=== PATIENT | male | born 1965 | race Caucasian/White ===

== ENCOUNTER 2023-02-11 19:24 | Emergency (ER) | payer MEDICAID ==
[~2023-02-11] VITALS: Ht 165.1 cm; Wt 91.2 kg
[2023-02-11 19:40] VITALS: BP 127/77; PULSE 92; RESP 16; TEMP 97.9; O2SAT 96
[2023-02-11] MEDS ORDERED: KETOROLAC 30 MG/ML VIAL IM ONE (21:35)
[2023-02-11 22:17] LABS: FLU A ANTIGEN negative (NEGATIVE); FLU B ANTIGEN NEGATIVE (NEGATIVE)
[2023-02-11] MEDS ORDERED: CYCL-711 PO (22:39)
[2023-02-11] MEDS ORDERED: PROM118S5 PO (22:39)
[2023-02-11] MEDS ORDERED: LID5T TP (22:39)
[2023-02-11] MEDS ORDERED: IBUP-2213 PO (22:39)
[2023-02-11 22:50] VITALS: BP 147/92; PULSE 82; RESP 16; TEMP 97.9; O2SAT 97
== END 2023-02-11 22:52 | disposition home or self-care (01) ==
LOC: MED 19:24
DX: J06.9 Acute upper respiratory infection, unspecified (principal); Z20.822 Contact with and (suspected) exposure to COVID-19; M54.30 Sciatica, unspecified side; Z79.899 Other long term (current) drug therapy
CPT/HCPCS: 71045; 87426; 87804; 96372; 99284; J1885

== ENCOUNTER 2023-05-24 12:03 | Emergency (ER) | payer MEDICAID ==
[~2023-05-24] VITALS: Ht 175.3 cm; Wt 83.9 kg
[~2023-05-24 12:03] MED LIST: CYCL-711 PO; IBUP-2213 PO; LID5T TP; PROM118S5 PO
[2023-05-24 12:11] VITALS: BP 118/82; PULSE 110; RESP 20; TEMP 98.1; O2SAT 99
[2023-05-24] MEDS: ONDANSETRON 4 MG/2 ML VIAL IVP ONE (13:15)
[2023-05-24] MEDS: FAMOTIDINE 20 MG/2 ML VIAL IVP ONE (13:16)
[2023-05-24] MEDS: NACL 0.9% 1,000 ML IV SCH (13:20)
[2023-05-24 14:03] LABS: BASOPHILS % (AUTO) 0.1 % (0.0-2.0); EOSINOPHILS % (AUTO) 0.2 % (0.0-4.0); HEMATOCRIT 42.5 % (36-52); HEMOGLOBIN 14.8 g/dL (12.0-18.0); LYMPHOCYTES # (AUTO) 1.3 K/uL (2.0-11.5); MEAN CORPUSCULAR HEMOGLOBIN 33 pg (27-31); MEAN CORPUSCULAR HGB CONC 35 g/dL (33-37); MEAN CORPUSCULAR VOLUME 94.3 fL (80-94); MONOCYTES # (AUTO) 0.7 K/uL (0.8-1.0); MONOCYTES % (AUTO) 6.5 % (1.7-9.3); NEUTROPHILS % (AUTO) 80.2 % (42.2-75.2); RED BLOOD CELL COUNT(AUTO) 4.51 MIL/uL (4.20-6.10); RED CELL DISTRIBUTION WIDTH 12.7 % (11.6-13.7)
[2023-05-24 14:06] LABS: ANION GAP 12.2 (8-16); CALCIUM 8.4 mg/dL (8.5-10.1); CARBON DIOXIDE 24.7 mmol/L (21-32); CREATININE 0.8 mg/dL (0.6-1.3); POTASSIUM 3.9 mmol/L (3.5-5.1)
[2023-05-24 14:12] LABS: ALANINE AMINOTRANSFERASE 26 U/L (12-78); ALBUMIN 3.3 g/dL (3.4-5.0); ALKALINE PHOSPHATASE 79 U/L (50-136); ASPARTATE AMINOTRANSFERASE 33 U/L (15-37); BILIRUBIN,DIRECT 0.3 mg/dL (0.0-0.3); LIPASE 70 U/L (16-77); TOTAL BILIRUBIN 0.9 mg/dL (0.0-1.0); TOTAL PROTEIN, SERUM 8.6 g/dL (6.4-8.2)
[2023-05-24 14:37] LABS: PLATELET COUNT (AUTO) 214 K/uL (140-450)
[2023-05-24] MEDS ORDERED: ACET-10509 PO (15:00)
[2023-05-24] MEDS ORDERED: BLOO1STR62 TOP (15:00)
[2023-05-24] MEDS ORDERED: METF-346 PO (15:00)
[2023-05-24] MEDS ORDERED: ONDA-188 PO (15:00)
[2023-05-24] MEDS: ACETAMINOPHEN 325 MG TAB PO ONE (15:22)
[2023-05-24 15:29] LABS: APPEARANCE,URINE CLEAR (CLEAR); BILIRUBIN,URINE NEGATIVE (NEGATIVE); BLOOD, URINE NEGATIVE (NEGATIVE); COLOR,URINE YELLOW (YELLOW); LEUKOCYTE ESTERASE ,URINE NEGATIVE (NEGATIVE); NITRITE, URINE NEGATIVE (NEGATIVE); PROTEIN,URINE NEGATIVE (NEGATIVE); UGLUCOSE 1+ (NEGATIVE)
[2023-05-24 16:06] VITALS: BP 112/65; PULSE 80; RESP 14; TEMP 98.3; O2SAT 95
== END 2023-05-24 16:06 | disposition home or self-care (01) ==
LOC: MED 12:03
DX: R73.9 Hyperglycemia, unspecified (principal); R11.10 Vomiting, unspecified; Z79.899 Other long term (current) drug therapy
CPT/HCPCS: 36415; 80048; 80076; 81003; 82948; 83690; 84484; 85025; 93005; 96361; 96374; 96375; 99284; J2405; J3490; J7030